=== PATIENT | female | born 1955 | race Caucasian/White ===

== ENCOUNTER 2020-11-09 14:10 | Emergency (ER) | payer BC ==
[2020-11-09 14:49] LABS: CHLORIDE,CL 104 mEq/L (98-106); SODIUM,NA 142 mEq/L (136-145)
--- NOTE | 2020-11-09 14:50 | EDM.PDOC ---
ED HPI GENERAL MEDICAL PROBLEM - General Chief Complaint: General Stated Complaint: L arm pain Time Seen by Provider: 11/09/20 14:35 Source of Information: Reports: Patient History Limitations: Reports: No Limitations - History of Present Illness INITIAL COMMENTS - FREE TEXT/NARRATIVE: Alka is a 71 year old female who presents to ER with complaints of left arm, shoulder and jaw pain. States has had intermittent pinching pain in her left anterior chest. Has been walking on her treadmill as of late and has not had pain with that. When first getting the pain between her shoulder blades, thought possibly related to that but does not use her arms while walking as she holds on to the rails to not fall. She has not had any previous cardiac events. No trauma to her left arm. No nausea or shortness of breath. Relates the pain often starts in the elbow/upper arm area and radiates up to her shoulder and jaw. Did have covid at the beginning of September. Duration: Day(s):, Waxing/Waning Location: Reports: Chest, Back, Upper Extremity, Left Quality: Reports: Ache Severity: Moderate Associated Symptoms: Reports: Chest Pain, Cough. Denies: cough w sputum, Fever/Chills, Loss of Appetite, Nausea/Vomiting, Shortness of Breath Left Arm Pain Score (Numeric/FACES): 8 - Related Data Allergies Allergy/AdvReac Type Severity Reaction Status Date / Time shellfish derived Allergy Other Verified 11/09/20 18:12 Home Meds: Home Meds Cholecalciferol (Vitamin D3) [Vitamin D3] 2,000 units PO DAILY 11/09/20 [History] Loratadine [Claritin] 1 tab PO DAILY 11/09/20 [History] Montelukast [Singulair] 1 tab PO DAILY 11/09/20 [History] Omeprazole 1 tab PO DAILY 11/09/20 [History] lisinopriL [Lisinopril] 10 mg PO DAILY 11/09/20 [History] Past Medical History Cardiovascular History: Reports: Hypertension Social & Family History - Tobacco Use Tobacco Use Status *Q: Never Tobacco User ED ROS GENERAL - Review of Systems Review Of Systems: See Below Constitutional: Denies: Fever, Chills, Malaise, Weakness, Fatigue, Decreased Appetite HEENT: Denies: Ear Pain, Sinus Problem, Throat Pain Respiratory: Reports: Cough. Denies: Shortness of Breath, Sputum Cardiovascular: Reports: Chest Pain. Denies: Edema, Lightheadedness Endocrine: Denies: Fatigue GI/Abdominal: Denies: Abdominal Pain, Nausea, Vomiting : Reports: No Symptoms Musculoskeletal: Reports: No Symptoms Skin: Reports: No Symptoms Neurological: Reports: No Symptoms ED EXAM, GENERAL - Physical Exam Exam: See Below Exam Limited By: No Limitations General Appearance: Alert, WD/WN, No Apparent Distress Ears: Normal External Exam, Normal TMs Nose: Normal Inspection, Normal Mucosa, No Blood Throat/Mouth: Normal Inspection, Normal Oropharynx Head: Normocephalic Neck: Normal Inspection, Supple, Non-Tender Respiratory/Chest: No Respiratory Distress, Lungs Clear, Normal Breath Sounds Cardiovascular: Regular Rate, Rhythm, Systolic Murmur GI/Abdominal: Normal Bowel Sounds, Soft, Non-Tender Extremities: Normal Inspection, No Pedal Edema Neurological: Alert, Oriented Skin Exam: Warm, Dry #1 Interpretation EKG Date: 11/09/20 Rhythm: NSR Course - Vital Signs Last Recorded V/S: Last Vital Signs Temp 97.5 F 11/09/20 14:15 Pulse 95 11/09/20 14:15 Resp 16 11/09/20 14:15 BP 149/85 H 11/09/20 14:15 Pulse Ox 96 11/09/20 14:15 - Orders/Labs/Meds Orders: Active Orders 24 hr Category Date Time Status EKG Documentation Completion [RC] ROUTINE Care 11/09/20 18:30 Active EKG Documentation Completion [RC] STAT Care 11/09/20 14:38 Active Chest 2V [CR] Stat Exams 11/09/20 14:37 Taken Labs: Laboratory Tests 11/09/20 11/09/20 11/09/20 Range/Units 14:32 14:32 14:32 WBC 7.4 (5.0-10.0) 10^3/uL RBC 4.36 (4.00-5.50) 10^6/uL Hgb 12.4 (12.0-16.0) g/dL Hct 39.1 (37.0-47.0) % MCV 89.7 (82.0-94.0) fL MCH 28.4 (27.0-32.0) pg MCHC 31.7 L (33.0-38.0) g/dL RDW Coeff of [place] 13.8 (11.0-15.0) % Plt Count 344 (150-400) 10^3/uL Neut % (Auto) 64.2 (35-85) % Lymph % (Auto) 25.3 (10-55) % [place] % (Auto) 8.6 (0-16) % Eos % (Auto) 1.6 (0-5) % Baso % (Auto) 0.3 (0-3) % Neut # (Auto) 4.72 (1.80-7.00) 10^3/uL Lymph # (Auto) 1.86 (1.00-4.80) 10^3/uL [place] # (Auto) 0.63 (0.00-0.80) 10^3/uL Eos # (Auto) 0.12 (0.00-0.45) 10^3/uL Baso # (Auto) 0.02 10^3/uL PT 9.7 (9.7-12.3) SEC INR 0.96 (0.92-1.18) APTT 22.3 L (23.2-32.3) SEC D-Dimer, Quantitative 0.31 (0.00-0.50) Sodium 142 (136-145) mEq/L Potassium 4.0 (3.5-5.0) mEq/L Chloride 104 (98-106) mEq/L Carbon Dioxide 28 (21-32) mmol/L BUN 15 (7-18) mg/dL Creatinine 0.9 (0.6-1.0) mg/dL Est Cr Clr Drug Dosing TNP Estimated GFR (MDRD) > 60 (>=60) mL/min Glucose 125 H (75-99) mg/dL Calcium 9.2 (8.4-10.1) mg/dL Total Bilirubin 0.2 (0.0-1.0) mg/dL AST 13 L (15-37) U/L ALT 33 (12-78) U/L Alkaline Phosphatase 80 (46-116) U/L Lactate Dehydrogenase 171 (100-190) U/L Creatine Kinase 41 (21-215) U/L Troponin I < 0.017 (0.00-0.06) ng/mL Total Protein 7.7 (6.4-8.2) g/dL Albumin 3.6 (3.4-5.0) g/dL Lipase 212 (73-393) U/L Urine Color (YELLOW) Urine Appearance (CLEAR) Urine pH (4.5-8.0) Ur Specific [place] (1.003-1.020) Urine Protein (NEGATIVE) mg/dL Urine Glucose (UA) (NEGATIVE) mg/dL Urine Ketones (NEGATIVE) mg/dL Urine Occult Blood (NEGATIVE) Urine Nitrite (NEGATIVE) Urine Bilirubin (NEGATIVE) Urine Urobilinogen (0.2-1.0) EU/dL Ur Leukocyte Esterase (NEGATIVE) Urine RBC (0-5) /HPF Urine WBC (0-5) /HPF Ur Epithelial Cells (NOT SEEN) /HPF 11/09/20 11/09/20 Range/Units 14:47 18:25 WBC (5.0-10.0) 10^3/uL RBC (4.00-5.50) 10^6/uL Hgb (12.0-16.0) g/dL Hct (37.0-47.0) % MCV (82.0-94.0) fL MCH (27.0-32.0) pg MCHC (33.0-38.0) g/dL RDW Coeff of [place] (11.0-15.0) % Plt Count (150-400) 10^3/uL Neut % (Auto) (35-85) % Lymph % (Auto) (10-55) % [place] % (Auto) (0-16) % Eos % (Auto) (0-5) % Baso % (Auto) (0-3) % Neut # (Auto) (1.80-7.00) 10^3/uL Lymph # (Auto) (1.00-4.80) 10^3/uL [place] # (Auto) (0.00-0.80) 10^3/uL Eos # (Auto) (0.00-0.45) 10^3/uL Baso # (Auto) 10^3/uL PT (9.7-12.3) SEC INR (0.92-1.18) APTT (23.2-32.3) SEC D-Dimer, Quantitative (0.00-0.50) Sodium (136-145) mEq/L Potassium (3.5-5.0) mEq/L Chloride (98-106) mEq/L Carbon Dioxide (21-32) mmol/L BUN (7-18) mg/dL Creatinine (0.6-1.0) mg/dL Est Cr Clr Drug Dosing Estimated GFR (MDRD) (>=60) mL/min Glucose (75-99) mg/dL Calcium (8.4-10.1) mg/dL Total Bilirubin (0.0-1.0) mg/dL AST (15-37) U/L ALT (12-78) U/L Alkaline Phosphatase (46-116) U/L Lactate Dehydrogenase (100-190) U/L Creatine Kinase (21-215) U/L Troponin I < 0.017 (0.00-0.06) ng/mL Total Protein (6.4-8.2) g/dL Albumin (3.4-5.0) g/dL Lipase (73-393) U/L Urine Color Light yellow (YELLOW) Urine Appearance Clear (CLEAR) Urine pH 6.5 (4.5-8.0) Ur Specific [place] 1.015 (1.003-1.020) Urine Protein Negative (NEGATIVE) mg/dL Urine Glucose (UA) Negative (NEGATIVE) mg/dL Urine Ketones Negative (NEGATIVE) mg/dL Urine Occult Blood Negative (NEGATIVE) Urine Nitrite Negative (NEGATIVE) Urine Bilirubin Negative (NEGATIVE) Urine Urobilinogen 0.2 (0.2-1.0) EU/dL Ur Leukocyte Esterase Trace H (NEGATIVE) Urine RBC Not seen (0-5) /HPF Urine WBC 0-5 (0-5) /HPF Ur Epithelial Cells Occasional H (NOT SEEN) /HPF - Re-Assessments/Exams Free Text/Narrative Re-Assessment/Exam: 11/09/20 15:03 Labs are all essentially normal at this point. EKG normal. Chest xray normal. Will monitor patient and repeat enzymes in 4 hours. Patient informed of results and plan. 11/09/20 19:20 No changes over the course of the afternoon. EKG unchanged, troponin negative. Does still have pain if raises arm but pain free at rest, likely musculoskeletal in nature. Discussed echocardiogram and cardiolyte stress test. Would like to "wait and think about it". Departure - Departure Time of Disposition: 19:22 Disposition: Home, Self-Care 01 Condition: Good Clinical Impression: Left arm pain - Discharge Information *PRESCRIPTION DRUG MONITORING PROGRAM REVIEWED*: No *COPY OF PRESCRIPTION DRUG MONITORING REPORT IN PATIENT RAUL: No Referrals: Kaleb Agrawal MD [Primary Care Provider] - Forms: ED Department Discharge Additional Instructions: 1. Rest 2. Ice or heat to arm 3. Aleve twice a day for 5 to 7 days 4. Follow up if develop chest discomfort or shortness of breath, further arm pain Sepsis Event Note (ED) - Evaluation Sepsis Screening Result: No Definite Risk - Focused Exam Vital Signs: Vital Signs Temp Pulse Resp BP Pulse Ox 11/09/20 14:15 97.5 F 95 16 149/85 H 96 - My Orders Last 24 Hours: My Active Orders 11/09/20 14:37 Chest 2V [CR] Stat 11/09/20 14:38 EKG Documentation Completion [RC] STAT 11/09/20 18:30 EKG Documentation Completion [RC] ROUTINE - Assessment/Plan Last 24 Hours: My Active Orders 11/09/20 14:37 Chest 2V [CR] Stat 11/09/20 14:38 EKG Documentation Completion [RC] STAT 11/09/20 18:30 EKG Documentation Completion [RC] ROUTINE
[2020-11-09 15:20] LABS: PTT,PARTIAL THROMBOPLSTIN TIME 22.3 SEC (23.2-32.3)
== END 2020-11-09 19:26 | disposition home or self-care (01) ==
LOC: EDBD 14:10 → CC.ED 14:10
DX: M25.512 Pain in left shoulder (principal); Z91.013 Allergy to seafood; I10 Essential (primary) hypertension; Z79.899 Other long term (current) drug therapy
CPT/HCPCS: 36415; 71046; 80053; 81001; 82550; 83615; 83690; 84484; 85025; 85379; 85610; 85730; 93005; 99284-25